=== PATIENT | male | born 1975 | race Caucasian/White ===

== ENCOUNTER 2019-02-11 20:09 | Emergency (ER) | payer OTHER ==
[~2019-02-11] VITALS: Ht 177.8 cm; Wt 100.1 kg
[2019-02-11 20:59] VITALS: BP 130/56
[2019-02-11] MEDS ORDERED: OXYcodone/APAP 5/325MG TABLET PO ONE (22:00)
[2019-02-11] MEDS ORDERED: OXYcodone/APAP 5/325MG TABLET ONE (22:02)
--- NOTE | 2019-02-11 22:04 | NUR ---
MEDICATED PER EMAR FOR PAIN
--- NOTE | 2019-02-11 22:36 | NUR ---
PT REPORTS IMPROVMENT IN PAIN WITH MEDICATIONS. DC EDUCATION PROVIDED, PT DEMONSTRATES UNDERSTANDING. PT AMBULATED STEADILY TO DC WITH RN. PT DRESSED APPROPRIATELY FOR WEATHER. OFFERED TAXI VOUCHER FOR SAFE TRANSPORT.
== END 2019-02-11 22:38 | disposition home or self-care (01) ==
LOC: ED 21:57
DX: M25.562 Pain in left knee (principal); G89.29 Other chronic pain; F17.210 Nicotine dependence, cigarettes, uncomplicated; R06.01 Orthopnea; Z76.0 Encounter for issue of repeat prescription; Z59.0 Homelessness
CPT/HCPCS: 99282; 99283

== ENCOUNTER 2019-02-25 21:43 | Emergency (ER) | payer OTHER ==
[~2019-02-25] VITALS: Ht 177.8 cm; Wt 100.0 kg
[2019-02-25 21:54] VITALS: BP 130/66
[2019-02-26] MEDS ORDERED: IBUPROFEN 600 MG TABLET PO ONE
[2019-02-26 00:20] LABS: BASOPHILS # (AUTO) 0.11 x10^3/uL (0-0.1); BASOPHILS % (AUTO) 1 % (0-1); EOSINOPHILS # (AUTO) 0.24 x10^3/uL (0-0.4); EOSINOPHILS % (AUTO) 2 % (1-7); LYMPHOCYTES # (AUTO) 2.51 x10^3/uL (1-3.4); LYMPHOCYTES % (AUTO) 21 % (22-44); MD NO; MEAN CORPUSCULAR HEMOGLOBIN 31.2 pg (27.5-34.5); MEAN CORPUSCULAR HGB CONC 33.9 g/dL (33.2-36.2); MEAN CORPUSCULAR VOLUME 92.1 fL (81-97); MEAN PLATELET VOLUME 7.5 fL (7.4-10.4); MONOCYTES # (AUTO) 0.85 x10^3/uL (0.2-0.8); MONOCYTES % (AUTO) 7 % (2-9); NEUTROPHILS # (AUTO) 8.08 x10^3/uL (1.8-6.8); NEUTROPHILS % (AUTO) 69 % (42-75); PLATELET COUNT 333 x10^3/uL (130-400); RED BLOOD COUNT 5.14 x10^6/uL (4.38-5.82); RED CELL DISTRIBUTION WIDTH 13.1 % (9.4-14.8)
[2019-02-26 00:25] LABS: ALBUMIN 4.1 g/dL (3.4-5.0); ANION GAP 5 mmol/L (5-15); C-REACTIVE PROTEIN, QUANT 0.55 mg/dL (0.02-0.49); CALCIUM 8.5 mg/dL (8.5-10.1); CHLORIDE 109 mmol/L (98-107); CREATININE 0.73 mg/dL (0.7-1.3)
[2019-02-26] MEDS ORDERED: IBUPROFEN 600 MG TABLET ONE (00:25)
[2019-02-26 00:28] LABS: HCT (SEDRATE) 47.3 % (39.2-51.8)
--- NOTE | 2019-02-26 01:00 | NUR ---
TESTS ARE BACK PT UP FOR RECHECK.
== END 2019-02-26 01:34 | disposition home or self-care (01) ==
LOC: ED 23:55
DX: L03.116 Cellulitis of left lower limb (principal); M25.562 Pain in left knee; M79.662 Pain in left lower leg; F17.200 Nicotine dependence, unspecified, uncomplicated; Z89.512 Acquired absence of left leg below knee; Z72.9 Problem related to lifestyle, unspecified
CPT/HCPCS: 36415; 80048; 82040; 85025; 85651; 86140; 99284

== ENCOUNTER 2019-03-02 17:56 | Emergency (ER) | payer OTHER ==
[~2019-03-02] VITALS: Ht 177.8 cm; Wt 99.8 kg
--- NOTE | 2019-03-02 18:14 | NUR ---
CHARGE NURSE: PT HAS MULTIPLE BAGS AND WHEELCHAIR, CALLED SECURITY FOR ASSISTANCE FOR STORAGE DUE TO PT STATING HE IS SI/SA.
--- NOTE | 2019-03-02 18:46 | NUR ---
urine sample sent lab at bedside-specimens obtained ordered suicide precautions diet tray
[2019-03-02 18:54] LABS: BASOPHILS # (AUTO) 0.02 x10^3/uL (0-0.1); BASOPHILS % (AUTO) 0 % (0-1); EOSINOPHILS % (AUTO) 2 % (1-7); LYMPHOCYTES # (AUTO) 1.71 x10^3/uL (1-3.4); LYMPHOCYTES % (AUTO) 16 % (22-44); MD NO; MEAN CORPUSCULAR HEMOGLOBIN 31.4 pg (27.5-34.5); MEAN CORPUSCULAR HGB CONC 33.7 g/dL (33.2-36.2); MEAN CORPUSCULAR VOLUME 93.1 fL (81-97); MEAN PLATELET VOLUME 7.5 fL (7.4-10.4); MONOCYTES # (AUTO) 0.62 x10^3/uL (0.2-0.8); MONOCYTES % (AUTO) 6 % (2-9); NEUTROPHILS # (AUTO) 8.45 x10^3/uL (1.8-6.8); NEUTROPHILS % (AUTO) 77 % (42-75); PLATELET COUNT 350 x10^3/uL (130-400); RED BLOOD COUNT 5.12 x10^6/uL (4.38-5.82); RED CELL DISTRIBUTION WIDTH 13.8 % (9.4-14.8)
--- NOTE | 2019-03-02 18:59 | NUR ---
SECURITY CALLED TO COLLECT BELONGINGS AND LOCKED UP. PATIENT HAS A LOT OF BELONGINGS WITH HIM, SECURITY STATES PATIENT BELONGINGS WILL BE SPLIT UP BETWEEN PATIENT BELONGINGS LOCKED CLOSET AND SECURITY STORAGE.
[2019-03-02 19:00] LABS: ANION GAP 5 mmol/L (5-15); CALCIUM 8.9 mg/dL (8.5-10.1); CHLORIDE 111 mmol/L (98-107); SALICYLATE LEVEL 4.2 mg/dL (2.8-20.0)
--- NOTE | 2019-03-02 19:00 | NUR ---
BEDSIDE REPORT RECEIVED FROM ARMANI SCHOFIELD. PLAN OF CARE DISCUSSED.
--- NOTE | 2019-03-02 19:15 | NUR ---
REPORT GIVEN TO JIN AKERS RN.
--- NOTE | 2019-03-02 19:24 | NUR ---
PT BELONGINGS GATHERED AND SECURED. SECURITY TOOK THREE BAGS TO SECURITY OFFICE: ONE BLACK DUFFEL BAG, ONE LARGE BLACK BAG, ONE BAG FULL OF SHARP ITEMS (SUCH KNIVES, SAW, SCREWDRIVERS, ETC). THEY ALSO TOOK A SNOW SHOVEL TO THE OFFICE. THREE BAGS STAYED IN ED LOCKER: ONE SHAFFER/BLACK DUFFEL BAG AND TWO LARGE BAGS. THE LARGE BAGS ARE RED BIOHAZARD BAGS THE PT HAS SO MANY BELONGINGS THAT IT WAS THE LARGEST BAG WE COULD USE TO SAVE PHYSICAL SPACE. PT HAS A WHEELCHAIR THAT WAS FOLDED UP AND PLACED IN PT ROOM NEXT TO THE DOOR.
[2019-03-02 19:29] LABS: AMPHETAMINE SCREEN, URINE Negative (Negative); BARBITURATE SCREEN, URINE Negative (Negative); BENZODIAZEPINE SCREEN, URINE Negative (Negative); CANNABINOID SCREEN, URINE Negative (Negative); COCAINE SCREEN, URINE Negative (Negative); METHADONE SCREEN, URINE Negative (Negative); OPIATE SCREEN, URINE Negative (Negative)
--- NOTE | 2019-03-02 19:38 | NUR ---
Report received from ARMANI Arshad. Patient moved to room 41 for a sitter. Roller doors down, room secure. All of patient's belongings locked up. Patient resting comfortably in bed.
--- NOTE | 2019-03-02 19:40 | NUR ---
BREAK RN: PT MOVED TO 41, REPORT GIVEN TO ARMANI GUZMAN.
--- NOTE | 2019-03-02 21:08 | NUR ---
Patient asleep in [facility]. Respirations even and unlabored. Sitter outside.
--- NOTE | 2019-03-02 22:02 | NUR ---
MALKA RN: PAPERWORK FAXED TO [facility] AND [facility].
--- NOTE | 2019-03-02 22:19 | NUR ---
Patient asleep in [facility]. Respirations even and unlabored. Sitter outside.
--- NOTE | 2019-03-02 22:48 | NUR ---
THROUGHPUT RN: PT DENIED AT [facility] UNLESS PT IS ABLE TO SELF PAY $4000 UPFRONT. PT UNABLE TO DO THIS. [employer] IS A GOVT INSURANCE.
--- NOTE | 2019-03-02 23:10 | NUR ---
Patient asleep in [facility]. Respirations even and unlabored. Sitter outside.
--- NOTE | 2019-03-03 00:04 | NUR ---
Patient asleep in [facility]. Respirations even and unlabored. Sitter outside.
--- NOTE | 2019-03-03 01:01 | NUR ---
Patient asleep in [facility]. Respirations even and unlabored. Sitter outside.
--- NOTE | 2019-03-03 02:05 | NUR ---
Patient asleep in [facility]. Respirations even and unlabored. Sitter outside.
--- NOTE | 2019-03-03 02:44 | NUR ---
BREAK RN: ROXANA FROM [facility] CALLED TO DISCUSS POSSIBLE ADMIT. WILL CALL BACK IF THEY HAVE A ROOM AVALIABLE LATER THIS MORNING.
--- NOTE | 2019-03-03 03:29 | NUR ---
Patient asleep in [facility]. Respirations even and unlabored. Sitter outside.
--- NOTE | 2019-03-03 04:24 | NUR ---
Patient asleep in [facility]. Respirations even and unlabored. Sitter outside.
--- NOTE | 2019-03-03 05:18 | NUR ---
Patient asleep in [facility]. Respirations even and unlabored. Sitter outside.
--- NOTE | 2019-03-03 06:42 | NUR ---
Patient resting in gurney. Respirations even and unlabored. Assisted patient with removing prosthetic. Sitter outside.
--- NOTE | 2019-03-03 07:03 | NUR ---
Bedside report from Marco rn With assessment Patient reports. "I'm feeling much better after getting a good nights sleep. I don't feel unstable like I did yesterday." Komal ventura ordered To assess suicidality in further detail shortly
--- NOTE | 2019-03-03 07:42 | NUR ---
Sitter within direct eyeline Room re-checked for psych precaution: Check normal Hospital Bed ordered for patient
--- NOTE | 2019-03-03 09:42 | NUR ---
Moved to Hospital bed with pillow Provided with breakfast tray Completed suicide reassessment: Remains danger to self other as continues to illustrate delusion thought/responding to internal stimuli. Does report continued thought of "possibly acting inappropriately when people I've known since I was 10 years old say stuff to me." However denies plan of how he would harm himself or others Attempted to complete med recc. Patient reports "I only use a b12 pill in the morning and thats all." Sitter remains within direct eyeline Room now only partially secured for psychiatric precautions (hospital bed has power cords, and patient prothetic and wheelchair as well a 4 nato wraps (used for BKA stump) remain in room)).
[2019-03-03] MEDS ORDERED: CYAN100T2 PO (09:47)
--- NOTE | 2019-03-03 09:58 | NUR ---
THROUGHPUT RN: PT DENIED FROM [facility] THEY DO NOT HAVE PROPER INSURANCE.
--- NOTE | 2019-03-03 09:59 | NUR ---
BREAK RN: PATIENT GIVEN ICE PACK AND TV REMOTE PER REQUEST.
--- NOTE | 2019-03-03 10:54 | NUR ---
PSYCHIATRY STEAMER OPERATOR AT BEDSIDE-UPDATED PATIENT ON ESTIMATED POC SITTER WITHIN DIRECT EYELINE
[2019-03-03] MEDS ORDERED: ARIPIPRAZOLE 5 MG TABLET ONE (11:04)
[2019-03-03] MEDS: ARIPIPRAZOLE 5 MG TABLET PO SCH (11:07)
--- NOTE | 2019-03-03 11:15 | NUR ---
MEDICATED PER EMAR UP TO RESTROOM TO VOID PROVIDED WITH ICE PACK FOR SORE LEFT SHOULDER (KNOWN LEFT SHOULD ISSUE-SLEPT ON ACCIDENTILY)
--- NOTE | 2019-03-03 12:15 | NUR ---
THROUGHPUT RN: [place], PSYCH PUBLIC WORKS TECHNICIAN REQUESTING PT TO GET APPLICATION FOR MEDICAID. SPOKE W/ YECENIA AT [phone] WHO STATES SHE WILL BE DOWN TO SEE PT.
--- NOTE | 2019-03-03 13:50 | NUR ---
PERSONNEL AT BEDSIDE HELPING PATIENT WITH INSURANCE PAPERWORK WITH RE-ASSESSMENT PATIENT REPORTS "I DON'T FEEL MUCH DIFFERENT AFTER THE MED YOU GAVE ME EARLIER. I STILL FEEL LIKE I NEED TO CATCH UP ON SLEEP." ATE ALL OF LUNCH DENIES COMPLAINTS SITTER REMAINS WITHIN DIRECT EYELINE
--- NOTE | 2019-03-03 16:57 | NUR ---
[facility] DENIED- INSURANCE
--- NOTE | 2019-03-03 19:00 | NUR ---
report to Pavithra LOMELI
--- NOTE | 2019-03-03 19:28 | NUR ---
REPORT RECEIVED FROM ARMANI SCHOFIELD. PT RESTING ON HOSPITAL BED WITH EYES CLOSED. RESPIRATIONS EVEN AND UNLABORED. NEEDS MET AT THIS TIME. ROOM SECURED, SITTER IN HALLWAY WITHIN LINE OF SIGHT.
--- NOTE | 2019-03-03 21:56 | NUR ---
PT RESTING ON HOSPITAL BED WITH EYES CLOSED. RESPIRATIONS EVEN AND UNLABORED. ROOM SECURED, SITTER IN HALLWAY, ALL NEEDS MET AT THIS TIME.
--- NOTE | 2019-03-03 22:58 | NUR ---
UNABLE TO PERFORM SUICIDE ASSESSMENT. PT SPEECH RAMBLING WITH FLIGHT OF IDEAS. PT NOT PROVIDING DIRECT ANSWERS TO QUESTIONS. PT SLEEPING PRIOR TO ASSESSMENT. ALL NEEDS MET AT THIS TIME. ROOM SECURED, SITTER IN HALLWAY WITHIN LINE OF SIGHT.
--- NOTE | 2019-03-04 00:15 | NUR ---
PT RESTING ON HOSPITAL BED WITH EYES CLOSED. RESPIRATIONS EVEN AND UNLABORED. ROOM SECURED, SITTER IN HALLWAY WITHIN LINE OF SIGHT.
--- NOTE | 2019-03-04 01:56 | NUR ---
PT RESTING ON HOSPITAL BED WITH EYES CLOSED. RESPIRATIONS EVEN AND UNLABORED. ROOM SECURED SITTER IN HALLWAY WITHIN LINE OF SIGHT.
--- NOTE | 2019-03-04 04:40 | NUR ---
POST DOWNTIME: SEE PAPER CHART
--- NOTE | 2019-03-04 05:40 | NUR ---
PT RESTING ON HOSPITAL BED WITH EYES CLOSED. RESPIRATIONS EVEN AND UNLABORED. ROOM SECURED, SITTER IN HALLWAY WITHIN LINE OF SIGHT OF PT.
--- NOTE | 2019-03-04 06:06 | NUR ---
PT PROVIDED TOWELS AND NEW GOWN. PT OFFERED SHAMPOO & TOOTHBRUSH, BUT REFUSED.
--- NOTE | 2019-03-04 07:02 | NUR ---
REPORT FROM NIKO. PT SLEEPING. BREAKFAST TRAY ORDERED.
--- NOTE | 2019-03-04 07:04 | NUR ---
REPORT GIVEN TO ARMANI MARINO.
--- NOTE | 2019-03-04 07:09 | NUR ---
VS COMPLETE. PT GIVEN COFFEE. PT STATES HE SLEPT WELL LAST NIGHT, IN GOOD MOOD AND POLITE.
[2019-03-04] MEDS ORDERED: ARIPIPRAZOLE 5 MG TABLET ONE (08:15)
[2019-03-04] MEDS: ARIPIPRAZOLE 5 MG TABLET PO SCH (08:17)
--- NOTE | 2019-03-04 08:25 | NUR ---
PROVIDED BREAKFAST TRAY, MEDICATED PER ORDERS. PT COOPERATIVE, SITTER PRESENT
--- NOTE | 2019-03-04 08:49 | NUR ---
REPORT FROM ARMANI KASPER.
--- NOTE | 2019-03-04 14:40 | NUR ---
PT RESTING IN BED, DENIES ANY NEEDS OR CONCERNS AT THIS TIME. SITTER CONTINUES IN DIRECT LINE OF SIGHT.
--- NOTE | 2019-03-04 15:40 | NUR ---
pt given coffee and meal tray. no needs at this time. requesting pain med for shoulder.
--- NOTE | 2019-03-04 16:30 | NUR ---
RESTING, NO NEEDS AT THIS TIME. SITTER PRESENT
--- NOTE | 2019-03-04 17:30 | NUR ---
PT RESTING. GIVEN WATTER AND SNACKS. NO NEEDS AT THIS TIME
--- NOTE | 2019-03-04 19:08 | NUR ---
RN to bedside, patient resting comfortably. Updated vitals. Vitals within normal limits (see vital signs flowsheet) Patient denies needs. Awaiting room at [facility].
--- NOTE | 2019-03-05 01:23 | NUR ---
Patient asleep, lights dimmed, can visualize breathing movements from door. Sitter in hallway two steps from patient.
--- NOTE | 2019-03-05 07:05 | NUR ---
REPORT RECIEVED FROM MUKUND LOMELI. PATIENT SLEEPING IN BED, SAFETY PRECAUTIONS IN PLACE.
[2019-03-05 07:36] VITALS: BP 142/85
--- NOTE | 2019-03-05 08:29 | NUR ---
MEAL PROVIDED, SAFETY PRECAUTIONS IN PLACE
[2019-03-05] MEDS ORDERED: ARIPIPRAZOLE 5 MG TABLET ONE (08:33)
[2019-03-05] MEDS: ARIPIPRAZOLE 5 MG TABLET PO SCH (08:34)
--- NOTE | 2019-03-05 09:53 | NUR ---
THROUGHPUT RN: SPOKE W/ MADHAVI FROM [facility]. NO ADMIT CAPABILITY TODAY.
--- NOTE | 2019-03-05 11:16 | NUR ---
PATIENT RESTING IN BED, SAFETY PRECAUTIONS IN PLACE
--- NOTE | 2019-03-05 12:14 | NUR ---
MEAL TRAY PROVIDED. SAFETY PRECAUTIONS IN PLACE
--- NOTE | 2019-03-05 13:20 | NUR ---
PSYCH JOE AT BEDSIDE FOR EVALUATION
--- NOTE | 2019-03-05 14:50 | NUR ---
BREAK RN: TWO RED BIOHAZARD BAGS AND ONE SUITCASE GIVEN TO PT, PT ALSO IN POSESSION OF HIS OWN WHEELCHAIR. SECURITY CALLED FOR REST OF BELONGINGS. PER SECURITY PT TO BE DISCHARGED AND STOP AT SECURITY AND WILL BE GIVEN REST OF BELONGINGS AND ESCORTED OFF PROPERTY BECAUSE PT HAS MULTIPLE KNIVES. PT STATES UNDERSTANDING. PT GIVEN DC INSTRUCTIONS AND RX. PER DR IBARRA NO RX FOR NARCOTICS AT THIS TIME.
== END 2019-03-05 16:05 | disposition home or self-care (01) ==
LOC: ED 19:28
DX: R45.851 Suicidal ideations (principal); F33.3 Major depressive disorder, recurrent, severe with psychotic symptoms; Z89.512 Acquired absence of left leg below knee
CPT/HCPCS: 36415; 80048; 80307; 82040; 85025; 99284

== ENCOUNTER 2019-03-09 23:57 | Emergency (ER) | payer OTHER ==
[~2019-03-09] VITALS: Ht 177.8 cm; Wt 101.0 kg
[~2019-03-09 23:57] MED LIST: CYAN100T2 PO
[2019-03-10 00:01] VITALS: BP 147/65
--- NOTE | 2019-03-10 00:04 | NUR ---
PT TO LOBBY, WAIT TIME EXPLAINED.
--- NOTE | 2019-03-10 00:22 | NUR ---
pt called to room from lobby
--- NOTE | 2019-03-10 00:45 | NUR ---
THIS IS A 43 YO MALE COMING IN FOR "PAIN IN MY ARMS, MY SHOULDERS, BOTH MY KNEES, MORE IN MY LEFT". 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 SMOKE PPD OF CIGARETTES. PATIENT RESTING IN GURNEY, APPEARS ANXIOUS AND IN DISTRESS DUE TO PAIN. CALL LIGHT IN REACH. NEEDS ADDRESSED
[2019-03-10] MEDS ORDERED: ARIPIPRAZOLE 5 MG TABLET ONE (00:57)
[2019-03-10] MEDS ORDERED: ACETAMINOPHEN 500 MG TABLET ONE (00:57)
[2019-03-10] MEDS: ARIPIPRAZOLE 5 MG TABLET PO ONE (00:59)
[2019-03-10] MEDS: ACETAMINOPHEN 500 MG TABLET PO ONE (00:59)
--- NOTE | 2019-03-10 01:08 | NUR ---
PATIENT MEDICATED PER EMAR, TOELRATED WELL. PATIENT CALM AND COOPERATIVE AT THIS TIME.
--- NOTE | 2019-03-10 01:46 | NUR ---
Patient/Caregiver given discharge instructions and they have confirmed that they understand the instructions. Patient ambulatory with steady gait.
== END 2019-03-10 01:58 | disposition home or self-care (01) ==
LOC: ED 03-10 01:56
CPT/HCPCS: 99283

== ENCOUNTER 2020-02-29 21:36 | Inpatient (IN) | payer MEDICAID ==
[~2020-02-29] VITALS: Ht 177.8 cm; Wt 97.0 kg
[~2020-02-29 21:36] MED LIST changes: -CYAN100T2 PO; +CYAN100T22 PO
[2020-02-29 22:58] LABS: BASOPHILS % (AUTO) 1 % (0-1); EOSINOPHILS % (AUTO) 1 % (1-7); LYMPHOCYTES % (AUTO) 10 % (22-44); MEAN CORPUSCULAR HGB CONC 35.3 g/dL (33.2-36.2); MONOCYTES % (AUTO) 5 % (2-9); NEUTROPHILS % (AUTO) 83 % (42-75); PLATELET COUNT 498 x10^3/uL (130-400); RED BLOOD COUNT 4.75 x10^6/uL (4.38-5.82); RED CELL DISTRIBUTION WIDTH 12.8 % (9.4-14.8)
[2020-02-29 23:06] LABS: MD NO
[2020-02-29 23:11] LABS: ALANINE AMINOTRANSFERASE 23 U/L (12-78); ALBUMIN 3.2 g/dL (3.4-5.0); ANION GAP 4 mmol/L (5-15); CHLORIDE 111 mmol/L (98-107); CREATININE 0.87 mg/dL (0.7-1.3); SALICYLATE LEVEL 4.1 mg/dL (2.8-20.0)
[2020-02-29 23:13] LABS: ALKALINE PHOSPHATASE 107 U/L (45-117); BILIRUBIN,TOTAL 0.4 mg/dL (0.2-1.0); TOTAL PROTEIN 7.8 g/dL (6.4-8.2)
--- NOTE | 2020-02-29 23:50 | NUR ---
NOT IN LOBBY
--- NOTE | 2020-03-01 00:10 | NUR ---
PT TO ROOM FROM LOBBY
[2020-03-01] MEDS ORDERED: CLINDAMYCIN PMX 600MG/50ML 50 ML IV ONE (01:00)
[2020-03-01] MEDS ORDERED: VANCOMYCIN PER PHARMACY MC ONE (01:00)
[2020-03-01] MEDS ORDERED: SODIUM CHLORIDE 0.9% 1,000ML IVBOLUS ONE (01:00)
[2020-03-01] MEDS ORDERED: CLINDAMYCIN PMX 600MG/50ML 50 ML ONE (01:13)
[2020-03-01] MEDS ORDERED: VANCOMYCIN 2,500 MG in SODIUM CHLORIDE 0.9% 500 ML IV ONE (01:30)
[2020-03-01] MEDS ORDERED: hydrALAzine 20 MG/ML, 1ML IVPush PRN (04:00)
[2020-03-01] MEDS ORDERED: BISACODYL 10 MG SUPP PR PRN (04:00)
[2020-03-01] MEDS ORDERED: ERTAPENEM 1 GM in SODIUM CHLORIDE 0.9% 50 ML IV SCH (04:00)
[2020-03-01] MEDS ORDERED: SODIUM CHLORIDE 0.9% 1,000 ML IV SCH (04:00)
[2020-03-01] MEDS ORDERED: ACETAMINOPHEN 325 MG TABLET PO PRN (04:00)
[2020-03-01] MEDS ORDERED: OXYcodone IR 5MG TABLET PO PRN (04:00)
[2020-03-01] MEDS ORDERED: DOCUSATE 100 MG CAPSULE PO PRN (04:00)
[2020-03-01] MEDS ORDERED: ONDANSETRON 2MG/ML, 2ML IVPush PRN (04:00)
[2020-03-01] MEDS ORDERED: VANCOMYCIN PER PHARMACY MC PRN (04:00)
[2020-03-01] MEDS ORDERED: ENOXAPARIN 40 MG/0.4 ML SQ SCH (04:00)
[2020-03-01] MEDS ORDERED: POLYETHYLENE GLYCOL 17 GM PACKET PO PRN (04:00)
[2020-03-01] MEDS ORDERED: morphine SULFATE 10 MG/ML, 1ML IVPush PRN (04:00)
[2020-03-01] MEDS ORDERED: PROMETHAZINE 25 MG/ML, 1ML IM PRN (04:00)
[2020-03-01] MEDS ORDERED: ONDANSETRON ODT 4 MG PO PRN (04:00)
[2020-03-01 04:20] VITALS: BP 146/86
[2020-03-01] MEDS ORDERED: PHARMACOKINETIC CONSULTATION MC ONE (04:30)
[2020-03-01] MEDS ORDERED: PHARMACOKINETIC MONITORING MC PRN (04:30)
[2020-03-01 06:15] LABS: FREE T4 (FREE THYROXINE) 1.17 ng/dL (0.76-1.46)
[2020-03-01] MEDS ORDERED: FLU VACC QS2020-21(6MOS UP)/PF 60MCG/0.5 ML SYR IM ONE (06:30)
[2020-03-01] MEDS ORDERED: VANCOMYCIN 1,500 MG in SODIUM CHLORIDE 0.9% 250 ML IV SCH (09:00)
[2020-03-01] MEDS ORDERED: CYANOCOBALOMIN 100MCG TABLET PO SCH (09:00)
[2020-03-01 09:02] VITALS: BP 135/80
[2020-03-01 11:18] LABS: MICROSCOPIC NOT IND
[2020-03-01 11:32] LABS: AMPHETAMINE SCREEN, URINE Negative (Negative); BARBITURATE SCREEN, URINE Negative (Negative); BENZODIAZEPINE SCREEN, URINE Negative (Negative); CANNABINOID SCREEN, URINE Negative (Negative); COCAINE SCREEN, URINE Negative (Negative); METHADONE SCREEN, URINE Negative (Negative); OPIATE SCREEN, URINE Negative (Negative)
== END 2020-03-01 11:23 | disposition left against medical advice (07) | DRG 383 ==
LOC: ED 03-01 01:54 → EDIP 03-01 02:20 → 3N 03-01 04:17
PROVIDERS: ADMIT Internal Medicine; ATTEND Family Medicine
DX: L03.115 Cellulitis of right lower limb (principal); L03.317 Cellulitis of buttock; F17.210 Nicotine dependence, cigarettes, uncomplicated; F22 Delusional disorders; T21.05XA Burn of unspecified degree of buttock, initial encounter; X08.8XXA Exposure to other specified smoke, fire and flames, initial encounter; Y93.89 Activity, other specified; Y92.89 Other specified places as the place of occurrence of the external cause; Y99.8 Other external cause status; Z89.512 Acquired absence of left leg below knee; Z53.29 Procedure and treatment not carried out because of patient's decision for other reasons
CPT/HCPCS: 36415; 80053; 80299; 80307; 80320; 80329; 81003; 83036; 83605; 83735; 84145; 84439; 84443; 85025; 87040; G0378; J1335; J1650; J3370; G0480; J7030; J7040; J7050

== ENCOUNTER 2020-03-10 02:56 | Emergency (ER) | payer MEDICAID ==
[~2020-03-10] VITALS: Ht 177.8 cm; Wt 103.0 kg
--- NOTE | 2020-03-10 04:10 | NUR ---
Pt wound on right kirby dressed with bacitrain, abd, nato wraps. Patient given discharge papers and told to get dressed. Extra supplies given to patient.
[2020-03-10 04:11] VITALS: BP 136/79
--- NOTE | 2020-03-10 04:22 | NUR ---
Patient was yeing in the rooom while getting dressed, Park Worker went into the room to assist patient and ask patient not to scream. Patient started yelling at senior underwriter to "fuck off" Park Worker then called security to escort patient out of the ER
[2020-03-10] MEDS ORDERED: BACITRACIN OINT 500U/GM, 15 GM TP ONE (09:00)
== END 2020-03-10 04:33 | disposition home or self-care (01) ==
LOC: ED 03:17
DX: L03.115 Cellulitis of right lower limb (principal); F17.210 Nicotine dependence, cigarettes, uncomplicated
CPT/HCPCS: 99283; 99406

== ENCOUNTER 2020-04-06 13:56 | Emergency (ER) | payer MEDICAID ==
[~2020-04-06] VITALS: Ht 177.8 cm; Wt 100.0 kg
[2020-04-06 13:59] VITALS: BP 127/79
== END 2020-04-06 14:14 | disposition left against medical advice (07) ==
LOC: ED 14:08
DX: F81.81 Disorder of written expression (principal)
CPT/HCPCS: 99281

== ENCOUNTER 2020-04-14 19:08 | Emergency (ER) | payer MEDICAID ==
[~2020-04-14] VITALS: Ht 177.8 cm; Wt 100.9 kg
[2020-04-14 19:11] VITALS: BP 132/79
--- NOTE | 2020-04-14 19:37 | NUR ---
PATIENT WALKED BACK FROM TRIAGE WITH CHIEF C/O PAIN. PER PATIENT HE HAS PAIN ON HIS SACRUM AND BUTTOCKS. PATIENT REPORTS PAIN IS ON AND OFF FOR "A WHILE." DUGLAS, ER PROVIDER HAS ALREADY EVALUATED PATIENT.
--- NOTE | 2020-04-14 20:37 | NUR ---
PATIENT RESTING IN GURNEY WITH EYES CLOSED, RESP EVEN AND UNLABORED, NADN, CALL LIGHT WITHIN REACH.
--- NOTE | 2020-04-14 21:33 | NUR ---
Patient given discharge instructions and taxi voucher and they have confirmed that they understand the instructions. Patient walked to discharge desk phone to call taxi cab. Patient stable and ambulatory with steady gait from ED to taxi.
== END 2020-04-14 21:34 | disposition home or self-care (01) ==
LOC: ED 21:08
DX: L20.81 Atopic neurodermatitis (principal); L28.0 Lichen simplex chronicus; R21 Rash and other nonspecific skin eruption
CPT/HCPCS: 99281

== ENCOUNTER 2020-04-18 02:05 | Emergency (ER) | payer MEDICAID ==
[~2020-04-18] VITALS: Ht 180.3 cm; Wt 85.0 kg
--- NOTE | 2020-04-18 02:27 | NUR ---
PT BIB [facility] WITH C/O RIGHT THIGH INFECTION. PT HAS SORES TO RIGHT THIGH HAS BEEN TREATED FOR SAME
[2020-04-18] MEDS ORDERED: NEOSPORIN OINT. PKT 1 PACKET ONE ×2 (03:25→03:38)
--- NOTE | 2020-04-18 04:25 | NUR ---
Pt wounds cleaned and bacitracin applied by tech. Pt dc'd with written and verbal instruction. Pt sent with taxi voucher for [facility]. Pt out of ER with belongings in a wc. Pt states he understands instructions.
[2020-04-18 04:26] VITALS: BP 118/50
== END 2020-04-18 04:29 | disposition home or self-care (01) ==
LOC: ED 03:26
DX: L25.9 Unspecified contact dermatitis, unspecified cause (principal); L03.115 Cellulitis of right lower limb; L03.116 Cellulitis of left lower limb; F17.210 Nicotine dependence, cigarettes, uncomplicated
CPT/HCPCS: 99283; 99406

== ENCOUNTER 2020-05-02 20:54 | Emergency (ER) | payer MEDICAID ==
[~2020-05-02] VITALS: Ht 177.8 cm; Wt 78.2 kg
[2020-05-02 21:04] VITALS: BP 122/71
[2020-05-02 22:14] LABS: BASOPHILS % (AUTO) 1 % (0-1); EOSINOPHILS % (AUTO) 7 % (1-7); LYMPHOCYTES % (AUTO) 26 % (22-44); MEAN CORPUSCULAR HEMOGLOBIN 31.6 pg (27.5-34.5); MEAN CORPUSCULAR HGB CONC 35.6 g/dL (33.2-36.2); MEAN PLATELET VOLUME 7.2 fL (7.4-10.4); MONOCYTES % (AUTO) 7 % (2-9); NEUTROPHILS % (AUTO) 59 % (42-75); PLATELET COUNT 350 x10^3/uL (130-400); RED BLOOD COUNT 4.92 x10^6/uL (4.38-5.82); RED CELL DISTRIBUTION WIDTH 13.4 % (9.4-14.8)
[2020-05-02 22:15] LABS: MD NO
[2020-05-02 22:24] LABS: ALBUMIN 3.8 g/dL (3.4-5.0); ANION GAP 6 mmol/L (5-15); CALCIUM 8.1 mg/dL (8.5-10.1); CHLORIDE 111 mmol/L (98-107); CREATININE 0.86 mg/dL (0.7-1.3)
== END 2020-05-02 23:20 | disposition home or self-care (01) ==
LOC: ED 21:00
DX: L20.84 Intrinsic (allergic) eczema (principal); F17.200 Nicotine dependence, unspecified, uncomplicated; Z89.512 Acquired absence of left leg below knee
CPT/HCPCS: 36415; 80048; 82040; 85025; 99283

== ENCOUNTER 2020-05-07 05:53 | Emergency (ER) | payer MEDICAID ==
[~2020-05-07] VITALS: Ht 177.8 cm; Wt 83.0 kg
[2020-05-07 06:07] VITALS: BP 137/74
--- NOTE | 2020-05-07 06:07 | NUR ---
INITIAL PT CONTACT. PT BIBA C/O BILAT QUAD PAIN, GENERALIZED ITCHING ALL OVER THE BODY AND PSYCOSIS LIKE TRAITS PER EMS. PT CONTINUALLY STATING "I KEEP GETTING ELECTROCUTED BY THE PELLIGRINOS, THEY KEEP SHOOTING ALL OVER MY BODY, ANYTHING THAT'S NOT COVERED GETS ALL THESE CAMARGO AND THINGS. THEY ITCH LIKE CRAZY!" PT DENIES ANY ADDITIONAL NEEDS AT THIS TIME. CALL LIGHT AND PERSONAL BELONGINGS WITHIN REACH. ERP AT BEDSIDE.
[2020-05-07] MEDS ORDERED: hydrOXyzine 50MG TABLET ONE (06:17)
--- NOTE | 2020-05-07 06:35 | NUR ---
Patient/Caregiver given discharge instructions and they have confirmed that they understand the instructions. Patient ambulatory with steady gait.
== END 2020-05-07 06:36 | disposition home or self-care (01) ==
LOC: ED 06:14
DX: B86 Scabies (principal); Z59.0 Homelessness
CPT/HCPCS: 99283; Q0177

== ENCOUNTER 2020-05-18 02:32 | Emergency (ER) | payer MEDICAID ==
[~2020-05-18] VITALS: Ht 177.8 cm; Wt 94.0 kg
[2020-05-18] MEDS ORDERED: hydrOXyzine 50MG TABLET ONE (03:22)
--- NOTE | 2020-05-18 03:24 | NUR ---
PATIENT ITCHING IN ROOM. GIVEN ATARAX 50MG PO PER ORDER. PATIENT UPDATED ON PLAN OF CARE. WILL CONTINUE TO MONITOR.
[2020-05-18 03:26] LABS: BASOPHILS % (AUTO) 1 % (0-1); EOSINOPHILS % (AUTO) 6 % (1-7); LYMPHOCYTES % (AUTO) 16 % (22-44); MEAN CORPUSCULAR HEMOGLOBIN 31.2 pg (27.5-34.5); MEAN CORPUSCULAR HGB CONC 35.1 g/dL (33.2-36.2); MEAN PLATELET VOLUME 7.2 fL (7.4-10.4); MONOCYTES % (AUTO) 6 % (2-9); NEUTROPHILS % (AUTO) 72 % (42-75); PLATELET COUNT 286 x10^3/uL (130-400); RED BLOOD COUNT 4.72 x10^6/uL (4.38-5.82); RED CELL DISTRIBUTION WIDTH 13.5 % (9.4-14.8)
[2020-05-18 03:30] LABS: MD NO
[2020-05-18] MEDS ORDERED: hydrOXyzine 50MG TABLET PO ONE (03:30)
[2020-05-18 03:35] LABS: ALANINE AMINOTRANSFERASE 27 U/L (12-78); ALBUMIN 3.4 g/dL (3.4-5.0); ANION GAP 6 mmol/L (5-15); CALCIUM 7.5 mg/dL (8.5-10.1); CHLORIDE 110 mmol/L (98-107); CREATININE 0.88 mg/dL (0.7-1.3); SALICYLATE LEVEL 1.9 mg/dL (2.8-20.0)
[2020-05-18 03:37] LABS: ALKALINE PHOSPHATASE 103 U/L (45-117); BILIRUBIN,TOTAL 0.5 mg/dL (0.2-1.0); TOTAL PROTEIN 7.2 g/dL (6.4-8.2)
--- NOTE | 2020-05-18 04:09 | NUR ---
PT REQ BLANKETS, PROVIDED AT THIS TIME. PT NOW SLEEPING, SITTER IN [place] FOR SAFETY NO ADDITIONAL NEEDS AT THIS TIME
--- NOTE | 2020-05-18 05:00 | NUR ---
PATIENT RESTING IN BED, EVEN-UNLABORED RESPIRATIONS NOTED. NO NOTED NEEDS AT THIS TIME. SITTER WITHIN VIEW OF PATIENT. WILL CONTINUE TO MONITOR.
--- NOTE | 2020-05-18 06:30 | NUR ---
PATIENT RESTING IN BED, EVEN-UNLABORED RESPIRATIONS NOTED. NO NOTED NEEDS AT THIS TIME. SITTER WITHIN VIEW OF PATIENT. WILL CONTINUE TO MONITOR.
--- NOTE | 2020-05-18 06:57 | NUR ---
REPORT GIVEN TO ANDREA LOMELI
--- NOTE | 2020-05-18 06:58 | NUR ---
REPORT RECEIVED FROM ARMANI LOWRY FOR TRANSFER OF PATIENT CARE.
--- NOTE | 2020-05-18 07:32 | NUR ---
BREAKFAST TRAY ORDERED.
--- NOTE | 2020-05-18 08:18 | NUR ---
BREAKFAST TRAY PROVIDED, NADN, SUICIDE PRECAUTIONS IN PLACE, SITTER AT DOORWAY.
--- NOTE | 2020-05-18 09:22 | NUR ---
PATIENT RESTING IN GURNEY WITH EYES CLOSED, RESP EVEN AND UNLABORED, SUICIDE PRECAUTIONS IN PLACE, SITTER IN DOORWAY.
--- NOTE | 2020-05-18 09:25 | NUR ---
EDUCATED PATIENT ON NEED FOR URINE SAMPLE, PATIENT IS REFUSING TO LEAVE URINE SAMPLE, STATES "NO THERE WILL BE NO URINE SAMPLE."
--- NOTE | 2020-05-18 09:51 | NUR ---
REPORT GIVEN TO ARMANI MAJOR FOR TRANSFER OF PATIENT CARE.
--- NOTE | 2020-05-18 10:00 | NUR ---
PT IN ROOM . STATED HE WANTED TO LEAVE.
--- NOTE | 2020-05-18 10:00 | NUR ---
REPORT RECIVED. PT IN BED. NOTIFIED THAT SHE WAS BEING ADMITTED
[2020-05-18 10:19] VITALS: BP 113/66
== END 2020-05-18 10:43 | disposition home or self-care (01) ==
LOC: ED 03:08
DX: F41.1 Generalized anxiety disorder (principal); Z72.9 Problem related to lifestyle, unspecified; F29 Unspecified psychosis not due to a substance or known physiological condition; L30.9 Dermatitis, unspecified; Z59.0 Homelessness
CPT/HCPCS: 36415; 80053; 80299; 80320; 80329; 85025; 99283; Q0177; G0480

== ENCOUNTER 2020-05-18 17:02 | Emergency (ER) | payer MEDICAID ==
[~2020-05-18] VITALS: Ht 177.8 cm; Wt 90.0 kg
[2020-05-18 17:08] VITALS: BP 140/94
[2020-05-18] MEDS ORDERED: CEPHALEXIN 500 MG CAPSULE PO ONE (18:00)
[2020-05-18] MEDS ORDERED: SULFAMETH./TRIMETHOPRIM DS 800MG/160MG TABLET PO ONE (18:00)
== END 2020-05-18 18:33 | disposition home or self-care (01) ==
LOC: ED 18:15
DX: L02.416 Cutaneous abscess of left lower limb (principal); B85.1 Pediculosis due to Pediculus humanus corporis
CPT/HCPCS: 99283